=== PATIENT | female | born 1965 | race Caucasian/White ===

== ENCOUNTER 2019-04-28 16:28 | Emergency (ER) | payer MEDICAID ==
[~2019-04-28] VITALS: Ht 157.5 cm; Wt 68.9 kg
[2019-04-28 16:30] VITALS: Ht 157.5 cm; Wt 68.9 kg
[2019-04-28 17:27] LABS: BASOPHIL % 0.6 % (0-2); PLATELET COUNT 264 x10^3mcL (130-400); RED CELL DISTRIBUTION WIDTH 14.2 % (11.5-14.5)
[2019-04-28 17:38] LABS: CALCIUM 8.7 mg/dL (8.5-10.1); CHLORIDE SERUM 105 mmol/L (98-107); CREATININE SERUM 0.6 mg/dL (0.6-1.0); GFR1 > 60 mL/min; GLUCOSE SERUM 80 mg/dL (74-106); POTASSIUM SERUM 4.4 mmol/L (3.5-5.1); SODIUM SERUM 143 mmol/L (136-145)
[2019-04-28 17:42] LABS: ALKALINE PHOSPHATASE 109 U/L (46-116); ALT/SGPT 31 U/L (14-59); AST/SGOT 22 U/L (15-37); BILIRUBIN TOTAL 0.3 mg/dL (0.20-1.00); LIPASE 194 IU/L (73-393); TOTAL PROTEIN, SERUM 7.4 g/dL (6.4-8.2)
[2019-04-28 19:50] VITALS: BP 124/57
== END 2019-04-28 19:50 | disposition home or self-care (01) ==
LOC: ED 16:28
PROVIDERS: Emergency Medicine
DX: M54.9 Dorsalgia, unspecified (principal); R10.30 Lower abdominal pain, unspecified; R14.0 Abdominal distension (gaseous); E11.9 Type 2 diabetes mellitus without complications
CPT/HCPCS: J1885; J2405; J7030

== ENCOUNTER 2019-10-31 13:19 | Emergency (ER) | payer MEDICAID ==
[~2019-10-31] VITALS: Ht 167.6 cm; Wt 66.7 kg
[2019-10-31 13:27] VITALS: Ht 167.6 cm; Wt 66.7 kg
[2019-10-31 15:57] VITALS: BP 140/74
== END 2019-10-31 15:57 | disposition home or self-care (01) ==
LOC: ED 13:19
DX: M35.01 Sjogren syndrome with keratoconjunctivitis (principal); E11.9 Type 2 diabetes mellitus without complications